=== PATIENT | male | born 1960 | race African-American/Black ===

== ENCOUNTER 2019-09-28 18:35 | Emergency (ER) | payer OTHER ==
[~2019-09-28 18:35] MED LIST: Iopamidol 370 76% 100 ML VIAL ONE
--- NOTE | 2019-09-28 18:59 | CT ---
CT HEAD WITHOUT IV CONTRAST COMPARISON: None HISTORY: Level 1 stroke. Patient awakened with right-sided weakness and slurred speech. Right arm drift. TECHNIQUE: Axial CT imaging at 5 mm intervals from vertex through skull base without contrast FINDINGS: Minimal scattered areas of diminished attenuation seen in the periventricular white matter which are nonspecific but likely reflective of mild chronic small vessel ischemic changes. There is no evidence of an acute infarction, hemorrhage, mass effect, or midline shift. The ventricular system is normal in size, shape, and position. There is complete opacification of right mastoid air cells. Left mastoid air cells and visualized par anasal sinuses are clear. Osseous structures appear intact. IMPRESSION: 1. No acute intracranial abnormality demonstrated. 2. Mild chronic small vessel ischemic changes. 3. Opacification of right mastoid air cells. Findings could be related to mastoiditis in the correct clinical scenario. 4. Above findings discussed Dr. Gilbert in the emergency department on 09/28/2019 at 1856 hours.
[2019-09-28 19:27] LABS: #Eosinphils 0.1 thou/uL (0.0-0.7); #Lymphocytes 1.5 thou/uL (1.20-3.40); #Monocytes 0.5 thou/uL (0.11-0.59); #Neutrophils 5.7 thou/uL (1.40-6.50); %Basophils 0.5 % (0.0-1.0); %Eosinophils 1.1 % (0.0-10.0); %Lymphocytes 19.2 % (21.0-51.0); %Monocytes 6.4 % (0.0-10.0); %Neutrophils 72.8 % (42.0-75.0); Hemoglobin 15.8 g/dL (14.0-18.0); Mean Corpuscular HGB CONC 32.8 g/dL (32.0-36.0); Mean Corpuscular Hemoglobin 27.1 pg (27.0-31.0); Mean Corpuscular Volume 82.5 fL (78.0-98.0); Mean Platelet Volume 8.4 fL (7.4-10.4); Platelet Count 180 thou/uL (130-400); RBC Distribution Width 12.3 % (11.5-14.5); Red Blood Cell (RBC) Count 5.84 mill/uL (4.70-6.10); White Blood Cell (WBC) Count 7.8 thou/uL (4.8-10.8)
[2019-09-28 19:34] LABS: Prothrombin Time 12.8 SEC (12.0-14.7)
--- NOTE | 2019-09-28 19:35 | CT ---
EXAM: CT angiogram head and neck with IV contrast and 3-D reconstructions PROVIDED CLINICAL HISTORY: Level 1 stroke alert. Patient awakened with right-sided weakness and slurred speech. COMPARISON: Noncontrast CT head obtained prior to this exam. FINDINGS: Vascular calcifications are seen in the aortic arch. There is a common origin of the innominate and l eft common carotid artery each of which is patent. Left subclavian artery is tortuous but patent. Portion of the right subclavian artery is not well seen due to dense contrast in the venous structure s. The bilateral common carotid arteries as well as bilateral internal and external carotid arteries are patent. Minimal vascular calcifications are seen at the left carotid artery bifurcation. The origin of the left vertebral artery is not well seen primarily related to motion in this region w hich limits adequate evaluation. A degree of mild narrowing is a possibility. Vertebral arteries are otherwise patent bilaterally and codominant. The basilar artery and posterior cerebral arteries a re patent bilaterally. There is mild atherosclerotic irregularity involving the carotid arteries within the carotid siphons greater on the left. The bilateral middle cerebral and anterior cerebral arteries are patent. Anterior communicating artery is present and patent. No focal stenosis or branch occlusion is identif ied. The bilateral parotid and submandibular glands as well as thyroid gland have a normal CT appearance. Atelectasis is seen within the visualized lungs. No enlarged lymph nodes are seen throughout the neck. Visualized paranasal sinuses are clear. There is opacification of the right mastoid air cells and por tion of the right middle ear cavity. In the correct clinical scenario, findings could be related to otomastoiditis. Degenerative changes are seen in the cervical spine. IMPRESSION: 1. Opacification of right mastoid air cells and partial opacification of the right middle ear cavity. Findings could be related to otomastoiditis in the correct clinical scenario. 2. Patent bilateral internal carotid arteries. 3. No focal stenosis or branch occlusion is seen involving the [place] or vertebrobasilar sy stem. 4. Above findings discussed Dr. Gilbert in the emergency room on 09/28/2019 at 1929 hours
[2019-09-28 19:39] LABS: Bilirubin Negative (Negative); Blood, Urine Negative (Negative); Clarity Clear (Clear); Glucose, Urine (Dipstick) Normal (Negative); Leukocyte Negative Leu/uL (Negative); Nitrite Negative (Negative); Protein, Urine (Dipstick) Negative (Neg-Trace); Urobilinogen Normal mg/dL (Less than 2)
[2019-09-28 19:40] LABS: ALT (SGPT) 34 U/L (8-55); AST (SGOT) 34 U/L (5-34); Albumin 4.4 g/dL (3.4-4.8); Alkaline Phosphatase 82 U/L (40-110); Anion Gap 12 mmol/L (10-20); BUN (Urea Nitrogen) 13 mg/dL (8.4-25.7); Bilirubin, Total 0.5 mg/dL (0.2-1.2); CK (CPK) 877 U/L (30-200); Calc. Creatinine Clearance 0 mL/min (70-130); Calcium 9.5 mg/dL (7.8-10.44); Carbon Dioxide 26 mmol/L (23-31); Chloride 103 mmol/L (98-107); Estimated GFR-MDRD 83; Globulin 3.1 g/dL (2.4-3.5); Glucose 92 mg/dL (80-115); Potassium 3.9 mmol/L (3.5-5.1); Protein, Total 7.5 g/dL (5.8-8.1); Sodium 137 mmol/L (136-145)
[2019-09-28] MEDS ORDERED: Clindamycin/D5W 600 mg/50 ml Premix Bag ONE (20:25)
[2019-09-28] MEDS ORDERED: Aspirin Chewable 81 MG TAB ONE (20:25)
== END 2019-09-29 00:08 | disposition short-term general hospital (02) ==
LOC: ERS 18:35
DX: I63.9 Cerebral infarction, unspecified (principal); H70.90 Unspecified mastoiditis, unspecified ear; I10 Essential (primary) hypertension; E03.9 Hypothyroidism, unspecified; K21.9 Gastro-esophageal reflux disease without esophagitis; E11.40 Type 2 diabetes mellitus with diabetic neuropathy, unspecified; I25.2 Old myocardial infarction; E78.5 Hyperlipidemia, unspecified; F41.9 Anxiety disorder, unspecified; F31.9 Bipolar disorder, unspecified; F43.10 Post-traumatic stress disorder, unspecified; Z79.899 Other long term (current) drug therapy; Z79.82 Long term (current) use of aspirin
CPT/HCPCS: 36416; 70450; 70496; 70498; 80053; 81003; 82550; 84484; 85025; 85610; 85730; 93005; 94760; 96365; J3490; Q9967

== ENCOUNTER 2020-04-24 09:13 | Emergency (ER) | payer OTHER ==
--- NOTE | 2020-04-24 09:38 | CT ---
CT HEAD WITHOUT IV CONTRAST COMPARISON: 09/28/2019 HISTORY: Level 2 stroke. Right-sided weakness. History of prior CVA. TECHNIQUE: Axial CT imaging at 5 mm intervals from vertex through skull base without contrast FINDINGS: There is mild diminished attenuation again seen in the periventricular white matter which is nonspeci fic but likely reflective of mild chronic small vessel ischemic changes. There is no evidence of an acute infarction, hemorrhage, mass effect, or midline shift. Cavum septum pellucidum et vergae is not ed which is a normal variant. There is no hydrocephalus. Skull base has a normal CT appearance. There is persistent complete opacification of the right mastoid air cells and right middle ear cavity . Findings could be related to bilateral mastoiditis. This is a clinical diagnosis. Left mastoid air cells and visualized paranasal sinuses are clear. Osseous structures appear intact. IMPRESSION: 1. No acute intracranial abnormality demonstrated. 2. Opacification of the right middle ear cavity and mastoid air cells also seen on prior study. Findi ngs could be related to otomastoiditis in the correct clinical scenario. 3. Above findings discussed with Dr. Gray in the emergency department 04/24/2020 at 0931 hours.
--- NOTE | 2020-04-24 09:58 | CT ---
EXAM: CT ANGIOGRAM OF THE HEAD AND NECK INDICATION: Previous CVA. Right-sided weakness. COMPARISON: 09/28/2019 TECHNIQUE: CT angiogram of the head and neck are performed in the axial plane. Three-dimensional refo rmatted images are submitted for interpretation. FINDINGS: CTA OF THE HEAD WITH AND WITHOUT CONTRAST: POSTCONTRAST CT OF BRAIN: Pathologic enhancement: No pathologic enhancement the brain. Postcontrast soft tissue neck CT: Aerodigestive tract:Aerodigestive tract is patent. No mucosal abnormality. Sinuses: Adequate aeration of the paranasal sinuses. Persistent asymmetric opacification of the right mastoid air cells. Nonemergent direct visualization of the nasopharynx is recommended to exclude a possible mass in the region of the right fossa of [place]. Orbits: Bilateral ocular lenses are appropriately located. Both globes are intact. Retrobulbar fat is preserved. Symmetric attenuation the optic nerves and ocular rectus muscles. Salivary glands:Symmetric attenuation Thyroid gland: Appropriate attenuation Lymph nodes: No evidence of lymphadenopathy by size criteria. Paraspinal muscles: Symmetric attenuation of the sternocleidomastoid muscles. Appropriate attenuation of the paraspinal muscles. Cervical spine:Stable degenerative changes throughout the cervical spine with varying degrees of cent ral canal stenosis and neural foraminal narrowing. There is severe loss of disc space height and osteophyte formation at C5-C6. Technique limits evaluation. Upper mediastinum and lung apices: Chronic changes. No acute abnormality. CTA OF THE NECK WITH CONTRAST: Aorta: Appropriate enhancement and luminal diameter the visualized aorta., And origin of the innomina te artery and the left common carotid artery. Right carotid artery: Appropriate enhancement and luminal diameter of the innominate artery, common c arotid artery, carotid bifurcation and internal carotid artery. No significant stenosis based upon NASCET criteria Left carotid: Appropriate enhancement and luminal diameter of the common carotid artery, carotid bifu rcation and internal carotid artery. No significant stenosis based upon NASCET criteria. Subclavian arteries:Patent and symmetric Vertebral arteries:Patent throughout their course in the neck. CTA OF THE BRAIN: Intracranial internal carotid arteries:Minimal atherosclerosis of the left and right cavernous segmen ts. No evidence of significant stenosis. Anterior circulation: Symmetric enhancement and luminal diameter the A1 segments, proximal A2 segment s, M1 segments and proximal MCA branches. Intracranial vertebral arteries: Appropriate enhancement and luminal diameter. Bilateral PICA artery origins are unremarkable. Posterior circulation: Both vertebral arteries supply normal caliber basilar artery. There is appropr iate enhancement and luminal diameter involving bilateral P1 segments. IMPRESSION: 1. No evidence of significant stenosis of the cervical carotid arteries, based upon NASCET criteria 2. No significant stenosis at the level of [place] 3. Persistent asymmetric opacification of the right mastoid air cells. Direct visualization of the na sopharynx is recommended Results study discussed with Dr. Gray 04/24/2020 9:53 AM Code CR
[2020-04-24 10:02] LABS: #Eosinphils 0.1 thou/uL (0.0-0.7); #Lymphocytes 1.5 thou/uL (1.20-3.40); #Monocytes 0.5 thou/uL (0.11-0.59); #Neutrophils 3.4 thou/uL (1.40-6.50); %Basophils 0.9 % (0.0-1.0); %Eosinophils 1.9 % (0.0-10.0); %Lymphocytes 26.5 % (21.0-51.0); %Monocytes 8.4 % (0.0-10.0); %Neutrophils 62.3 % (42.0-75.0); Hemoglobin 16.2 g/dL (14.0-18.0); Mean Corpuscular HGB CONC 33.1 g/dL (32.0-36.0); Mean Corpuscular Hemoglobin 26.7 pg (27.0-31.0); Mean Corpuscular Volume 80.5 fL (78.0-98.0); Mean Platelet Volume 8.1 fL (7.4-10.4); Platelet Count 191 thou/uL (130-400); RBC Distribution Width 11.9 % (11.5-14.5); Red Blood Cell (RBC) Count 6.07 mill/uL (4.70-6.10); White Blood Cell (WBC) Count 5.5 thou/uL (4.8-10.8)
[2020-04-24 10:11] LABS: PTT 33.4 sec (22.9-36.1); Prothrombin Time 13.7 sec (12.0-14.7)
[2020-04-24 10:32] LABS: ALT (SGPT) 32 U/L (8-55); AST (SGOT) 26 U/L (5-34); Albumin 4.3 g/dL (3.4-4.8); Alkaline Phosphatase 100 U/L (40-110); Anion Gap 14 mmol/L (10-20); BUN (Urea Nitrogen) 10 mg/dL (8.4-25.7); Bilirubin, Total 0.5 mg/dL (0.2-1.2); Calc. Creatinine Clearance 0 mL/min (70-130); Calcium 9.1 mg/dL (7.8-10.44); Carbon Dioxide 25 mmol/L (23-31); Chloride 103 mmol/L (98-107); Estimated GFR-MDRD 88; Globulin 3.2 g/dL (2.4-3.5); Glucose 107 mg/dL (80-115); Potassium 4.5 mmol/L (3.5-5.1); Protein, Total 7.5 g/dL (5.8-8.1); Sodium 137 mmol/L (136-145)
[2020-04-24] MEDS ORDERED: Acetaminophen 500 MG TAB ONE ×2 (10:59→11:02)
[2020-04-24] MEDS ORDERED: Aspirin Chewable 81 MG TAB ONE (10:59)
--- NOTE | 2020-04-24 11:28 | RAD ---
Exam: XR Shoulder Rt 3 View STANDARD HISTORY: Right shoulder pain after a fall. COMPARISON: None FINDINGS: No acute fracture, dislocation, or other acute osseous abnormality is identified. Minimal right glenohumeral osteoarthropathy as well as right acromioclavicular joint osteoarthritis i s present. IMPRESSION: No acute osseous abnormality is identified.
[2020-04-24] MEDS ORDERED: Iopamidol-370 76% 500 ML 1 ML ONE (11:49)
--- NOTE | 2020-04-24 14:10 | RAD ---
RIGHT HIP 2 VIEWS: INDICATION: History of right hip pain after a fall. COMPARISON: None. FINDINGS: There is contrast within the renal collecting system likely related to the patient's prior CTA of the head. There is moderate to severe osteoarthrosis of the right hip. No displaced fracture is eviden t. IMPRESSION: No acute osseous abnormality. POS: BH
--- NOTE | 2020-04-25 15:50 | CT ---
EXAM: CT ANGIOGRAM OF THE HEAD AND NECK INDICATION: Previous CVA. Right-sided weakness. COMPARISON: 09/28/2019 TECHNIQUE: CT angiogram of the head and neck are performed in the axial plane. Three-dimensional refo rmatted images are submitted for interpretation. FINDINGS: CTA OF THE HEAD WITH AND WITHOUT CONTRAST: POSTCONTRAST CT OF BRAIN: Pathologic enhancement: No pathologic enhancement the brain. Postcontrast soft tissue neck CT: Aerodigestive tract:Aerodigestive tract is patent. No mucosal abnormality. Sinuses: Adequate aeration of the paranasal sinuses. Persistent asymmetric opacification of the right mastoid air cells. Nonemergent direct visualization of the nasopharynx is recommended to exclude a possible mass in the region of the right fossa of [place]. Orbits: Bilateral ocular lenses are appropriately located. Both globes are intact. Retrobulbar fat is preserved. Symmetric attenuation the optic nerves and ocular rectus muscles. Salivary glands:Symmetric attenuation Thyroid gland: Appropriate attenuation Lymph nodes: No evidence of lymphadenopathy by size criteria. Paraspinal muscles: Symmetric attenuation of the sternocleidomastoid muscles. Appropriate attenuation of the paraspinal muscles. Cervical spine:Stable degenerative changes throughout the cervical spine with varying degrees of cent ral canal stenosis and neural foraminal narrowing. There is severe loss of disc space height and osteophyte formation at C5-C6. Technique limits evaluation. Upper mediastinum and lung apices: Chronic changes. No acute abnormality. CTA OF THE NECK WITH CONTRAST: Aorta: Appropriate enhancement and luminal diameter the visualized aorta., And origin of the innomina te artery and the left common carotid artery. Right carotid artery: Appropriate enhancement and luminal diameter of the innominate artery, common c arotid artery, carotid bifurcation and internal carotid artery. No significant stenosis based upon NASCET criteria Left carotid: Appropriate enhancement and luminal diameter of the common carotid artery, carotid bifu rcation and internal carotid artery. No significant stenosis based upon NASCET criteria. Subclavian arteries:Patent and symmetric Vertebral arteries:Patent throughout their course in the neck. CTA OF THE BRAIN: Intracranial internal carotid arteries:Minimal atherosclerosis of the left and right cavernous segmen ts. No evidence of significant stenosis. Anterior circulation: Symmetric enhancement and luminal diameter the A1 segments, proximal A2 segment s, M1 segments and proximal MCA branches. Intracranial vertebral arteries: Appropriate enhancement and luminal diameter. Bilateral PICA artery origins are unremarkable. Posterior circulation: Both vertebral arteries supply normal caliber basilar artery. There is appropr iate enhancement and luminal diameter involving bilateral P1 segments. IMPRESSION: 1. No evidence of significant stenosis of the cervical carotid arteries, based upon NASCET criteria 2. No significant stenosis at the level of [place] 3. Persistent asymmetric opacification of the right mastoid air cells. Direct visualization of the na sopharynx is recommended Results study discussed with Dr. Gray 04/24/2020 9:53 AM Code CR Transcribed Date/Time: 04/25/2020 3:49 PM
== END 2020-04-24 15:51 | disposition short-term general hospital (02) ==
LOC: EEVIPCON 09:13 → ERS 09:13
DX: I63.9 Cerebral infarction, unspecified (principal); I10 Essential (primary) hypertension; E03.9 Hypothyroidism, unspecified; E11.9 Type 2 diabetes mellitus without complications; F41.9 Anxiety disorder, unspecified; F31.9 Bipolar disorder, unspecified; F43.10 Post-traumatic stress disorder, unspecified; Z79.82 Long term (current) use of aspirin; Z79.899 Other long term (current) drug therapy
CPT/HCPCS: 36415; 36416; 70450; 70496; 70498; 80053; 84484; 85025; 85610; 85730; 93005; Q9967